=== PATIENT | male | born 1990 | race Caucasian/White ===

== ENCOUNTER 2018-11-30 22:40 | Emergency (ER) | payer SELFPAY ==
--- NOTE | 2018-11-30 22:48 | NUR ---
PATIENT LEFT WITHOUT BEING TRIAGED. PATIENT STATES " I WILL GO TO [facility] NOW, MY DOCTOR IS OUT FOR [facility] AND [facility] SAID THEY WILL GIVE ME MY [employer]ANA[employer] REFILL. SHRED MY PAPERWORK".
== END 2018-11-30 22:51 | disposition left against medical advice (07) ==
LOC: ER 22:43
DX: Z53.21 Procedure and treatment not carried out due to patient leaving prior to being seen by health care provider (principal)